=== PATIENT | female | born 2000 | race Hispanic/Latino ===

== ENCOUNTER 2019-05-14 18:34 | Emergency (ER) | payer BC ==
[~2019-05-14] VITALS: Ht 162.6 cm; Wt 59.0 kg
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
[2019-05-14 21:01] VITALS: BP 119/81
[2019-05-14 21:25] LABS: CLARITY,URINE CLOUDY (CLEAR); COLOR,URINE YELLOW (YELLOW); LEUKOCYTE ESTERASE ,URINE NEGATIVE (NEGATIVE); NITRITE,URINE NEGATIVE (NEGATIVE); PROTEIN,URINE DIPSTICK 1+ (NEGATIVE); URINE UROBILINOGEN 0.2 mg/dL (0.2 - 1)
[2019-05-14 21:26] LABS: BILIRUBIN,URINE NEGATIVE (NEGATIVE); KETONES,URINE NEGATIVE (NEGATIVE)
[2019-05-14 21:39] LABS: AMORPHOUS SEDIMENT,URINE MANY (FEW); BACTERIA,URINE FEW /HPF
== END 2019-05-14 21:21 | disposition home or self-care (01) ==
LOC: ER 18:40
DX: M54.5 Low back pain (principal); M54.6 Pain in thoracic spine; V43.52XA Car driver injured in collision with other type car in traffic accident, initial encounter; Y92.488 Other paved roadways as the place of occurrence of the external cause
CPT/HCPCS: 72070; 72100; 81001; 81025; 99283

== ENCOUNTER → 2019-05-28 | Outpatient (CLI) | payer BC ==
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
== END ==
LOC: MRI 08:46
PROVIDERS: ATTEND Family Medicine
DX: G44.309 Post-traumatic headache, unspecified, not intractable (principal)
CPT/HCPCS: 70551